=== PATIENT | female | born 1990 | race Caucasian/White ===

== ENCOUNTER 2017-04-12 13:31 | Emergency (ER) | payer OTHER, SELFPAY ==
[2017-04-12 13:50] VITALS: O2SAT 100
[2017-04-12] MEDS ORDERED: SUBLIMAZE 100 MCG/2 ML IV ONE (14:15)
[2017-04-12] MEDS ORDERED: Sodium Chloride 0.9% 1000 ML 1,000 ML IV STA (14:15)
[2017-04-12] MEDS ORDERED: Zofran 4 MG/2 ML VIAL IV ONE (14:15)
[2017-04-12 14:35] LABS: BASOPHIL % 0.3 % (0.0-0.4); Eosinophil % 1.9 % (0.00-5.0); Lymphocytes % 32.7 % (24.0-44.0); Mean Cell Volume 90.3 fl (78-100); Mean Corpuscular Hemoglobin 29.2 pg (26-32); Mean Platelet Volume 11.6 fl (6-9.5); Monocytes % 8.1 % (0.0-12.0); Platelet Count 305 K/mm3 (150-450); Red Blood Count 4.72 M/mm3 (4.1-5.4); Red Cell Distribution Width 12.4 % (11.5-14.0)
[2017-04-12 14:51] LABS: ANION GAP 11.6 MEQ/L (5-15); BLOOD UREA NITROGEN 12 mg/dL (9-20); CHLORIDE 105 mEq/L (98-107); Carbon Dioxide 27.4 mEq/L (21-32); Glucose 97 MG/DL (70-110); Potassium 4.2 mEq/L (3.5-5.1); SODIUM 140 mEq/L (136-145)
[2017-04-12] MEDS ORDERED: Zofran 4 MG/2 ML VIAL ONE (14:55)
[2017-04-12] MEDS ORDERED: Sodium Chloride 0.9% 1000 ML 1,000 ML ONE (14:55)
[2017-04-12] MEDS ORDERED: SUBLIMAZE 100 MCG/2 ML ONE (14:55)
--- NOTE | 2017-04-12 15:07 | ERPHSYRPT ---
- History of Present Illness Time Seen by Provider: 04/12/17 14:00 Historian: patient Patient Subjective Stated Complaint: pt states she has had abdominal pain on the left side that has been constant for the past 1 1/2 weeks. pt states she did notice blood in stool this morning. states she only has a bowel movement once or twice a month. Triage Nursing Assessment: pt pink, warm, dry. abdomen soft non tender. bowel sounds present in all 4 quads. pt afebrile. Physician History: PATIENT WITH A HISTORY OF MIGRAINE HEADACHES FOR YEARS AND COLONIC POLYPS, STATES SHE HAS HAD LEFT LOWER ABDOMINAL PAIN SINCE HER COLONOSCOPY 2011 AT WHICH TIME SHE HAD REMOVAL OF COLON POLYPS. HAS HAD AN OCCIPITAL HEADACHE FOR 3 WEEKS. DENIES NAUSEA, EMESIS, BLURRED VISION, URINARY SYMPTOMS OR DIARRHEA. Timing/Duration: week(s) Activities at Onset: none Quality: cramping Abdominal Pain Onset Location: LLQ Pain Radiation: no radiation Severity of Pain-Max: moderate Severity of Pain-Current: moderate Modifying Factors: Improves With: nothing Associated Symptoms: denies symptoms Previous symptoms: same symptoms as today Allergies/Adverse Reactions: ibuprofen Allergy (Mild, Verified 04/12/17 13:50) Hives n/v morphine Allergy (Verified 04/12/17 13:50) Hives Hx Tetanus, Diphtheria Vaccination/Date Given: Yes (up[ to date) Hx Influenza Vaccination/Date Given: No Hx Pneumococcal Vaccination/Date Given: No Immunizations Up to Date: Yes - Review of Systems Constitutional: No Fever, No Chills Eyes: No Symptoms Ears, Nose, & Throat: No Symptoms Respiratory: No Symptoms, No Cough, No Dyspnea Cardiac: No Symptoms, No Chest Pain, No Edema, No Syncope Abdominal/Gastrointestinal: No Abdominal Pain, No Nausea, No Vomiting, No Diarrhea Genitourinary Symptoms: No Symptoms, No Dysuria Musculoskeletal: No Symptoms, No Back Pain, No Neck Pain Skin: No Rash Neurological: No Dizziness, No Focal Weakness, No Sensory Changes Psychological: No Symptoms Endocrine: No Symptoms All Other Systems: Reviewed and Negative - Past Medical History Pertinent Past Medical History: Yes Neurological History: Migraines ENT History: No Pertinent History Cardiac History: No Pertinent History Respiratory History: No Pertinent History, Asthma Endocrine Medical History: No Pertinent History Musculoskeletal History: Other GI Medical History: Polyps History: No Pertinent History Psycho-Social History: Attention Deficit Disorder, Bipolar, Depression Female Reproductive Disorders: Other Other Medical History: CHRONIC BACK PAIN, ECTOPIC - Past Surgical History Past Surgical History: Yes Neuro Surgical History: No Pertinent History Cardiac: No Pertinent History Respiratory: No Pertinent History Gastrointestinal: No Pertinent History Genitourinary: No Pertinent History Musculoskeletal: No Pertinent History Female Surgical History: Section, Tubal Ligation, Other Other Surgical History: x two, D&C, - Social History Smoking Status: Never smoker Exposure to second hand smoke: No Alcohol Use: None Drug Use: none Patient Lives Alone: No Significant Family History: other (Hx lung cancer in family) - Female History Hx Last Menstrual Period: 03/23/17 Hx Now: No - Nursing Vital Signs Nursing Vital Signs: Initial Vital Signs Temperature 98.9 F 04/12/17 13:45 Pulse Rate 93 H 04/12/17 13:45 Respiratory Rate 18 04/12/17 13:45 Blood Pressure 127/67 04/12/17 13:45 O2 Sat by Pulse Oximetry 100 04/12/17 13:45 Pain Scale Pain Intensity 9 - Physical Exam General Appearance: no apparent distress, alert Eye Exam: PERRL/EOMI, eyes nml inspection Ears, Nose, Throat Exam: normal ENT inspection, pharynx normal, moist mucous membranes Neck Exam: normal inspection, non-tender, supple, full range of motion Respiratory Exam: normal breath sounds, lungs clear, No respiratory distress Cardiovascular Exam: regular rate/rhythm, normal heart sounds Gastrointestinal/Abdomen Exam: soft, normal bowel sounds, tenderness (LEFT LOWER LATERAL QUAD TENDERNESS), No mass Rectal Exam: normal exam, normal rectal tone Back Exam: normal inspection, normal range of motion, No CVA tenderness, No vertebral tenderness Extremity Exam: normal inspection, normal range of motion, pelvis stable Neurologic Exam: alert, oriented x 3, cooperative, normal mood/affect, nml cerebellar function, sensation nml, No motor deficits Skin Exam: normal color, warm, dry SpO2 Interpretation: normal SpO2: 100 Oxygen Delivery: Room Air Ordered Tests: Active Orders 24 hr Category Date Time Status IV Insertion STAT Care 04/12/17 14:15 Active BMP Stat Lab 04/12/17 14:34 Completed CBC W DIFF Stat Lab 04/12/17 14:34 Completed HCG,QUALITATIVE URINE Stat Lab 04/12/17 14:15 Completed Occult Blood,Stool Other Stat Lab 04/12/17 14:20 Completed UA W/RFX UR CULTURE Stat Lab 04/12/17 14:34 Completed Urine Triage Profile Stat Lab 04/12/17 14:34 Completed Medication Summary Discontinued Medications Generic Name Dose Route Start Last Admin Trade Name Katerine PRN Reason Stop Dose Admin Fentanyl Citrate 100 mcg 04/12/17 14:15 04/12/17 15:00 Sublimaze 100 Mcg/2 Ml IV 04/12/17 14:16 100 mcg STAT ONE Administration Fentanyl Citrate Confirm 04/12/17 14:55 Sublimaze 100 Mcg/2 Ml Administered 04/12/17 14:56 Dose 100 mcg .ROUTE .STK-MED ONE Sodium Chloride 1,000 mls @ 999 mls/hr 04/12/17 14:15 04/12/17 15:00 Sodium Chloride 0.9% 1000 Ml IV 04/12/17 15:15 999 mls/hr .Q1H1M STA Administration Sodium Chloride Confirm 04/12/17 14:55 Sodium Chloride 0.9% 1000 Ml Administered 04/12/17 14:56 Dose 1,000 mls @ ud .ROUTE .STK-MED ONE Ondansetron HCl 4 mg 04/12/17 14:15 04/12/17 15:00 Zofran 4 Mg/2 Ml Vial IV 04/12/17 14:16 4 mg STAT ONE Administration Ondansetron HCl Confirm 04/12/17 14:55 Zofran 4 Mg/2 Ml Vial Administered 04/12/17 14:56 Dose 4 mg .ROUTE .STK-MED ONE Lab/Rad Data: Laboratory Result Diagrams 04/12/17 14:34 04/12/17 14:34 Laboratory Results 04/12/17 04/12/17 04/12/17 Range/Units 14:34 14:34 14:34 WBC (4.0-10.5) K/mm3 RBC (4.1-5.4) M/mm3 Hgb (12.0-16.0) gm/dl Hct (35-47) % MCV (78-100) fl MCH (26-32) pg MCHC (32-36) g/dl RDW (11.5-14.0) % Plt Count (150-450) K/mm3 MPV (6-9.5) fl Gran % (36.0-66.0) % Lymphocytes % (24.0-44.0) % Monocytes % (0.0-12.0) % Eosinophils % (0.00-5.0) % Basophils % (0.0-0.4) % Basophils # (0-0.4) Sodium 140 (136-145) mEq/L Potassium 4.2 (3.5-5.1) mEq/L Chloride 105 (98-107) mEq/L Carbon Dioxide 27.4 (21-32) mEq/L Anion Gap 11.6 (5-15) MEQ/L BUN 12 (9-20) mg/dL Creatinine 0.92 (0.55-1.30) mg/dl Estimated GFR > 60 ML/MIN Glucose 97 (70-110) MG/DL Calcium 8.9 (8.5-10.1) mg/dL Ur Collection Type CLEAN CATCH Urine Color YELLOW (YELLOW) Urine Appearance CLEAR (CLEAR) Urine pH 8.0 (5-6) Ur Specific [place] 1.005 (1.005-1.025) Urine Protein NEGATIVE (Negative) Urine Ketones NEGATIVE (NEGATIVE) Urine Blood NEGATIVE (0-5) Ranjan/ul Urine Nitrite NEGATIVE (NEGATIVE) Urine Bilirubin NEGATIVE (NEGATIVE) Urine Urobilinogen NORMAL (0-1) mg/dL Ur Leukocyte Esterase NEGATIVE (NEGATIVE) Urine Culture Reflexed NO (NO) Urine Glucose NEGATIVE (NEGATIVE) mg/dL Urine HCG, Qual (Negative) Stool Occult Blood (Negative) Urine Opiates Level NEG. (NEGATIVE) Ur Methadone NEG. (NEGATIVE) Urine Barbiturates NEG. (NEGATIVE) Ur Phencyclidine (PCP) NEG. (NEGATIVE) Urine Amphetamine NEG. (NEGATIVE) U Benzodiazepine Level NEG. (NEGATIVE) Urine Cocaine NEG. (NEGATIVE) Urine Marijuana (THC) POS. (NEGATIVE) Specimen Received 04-12 1430 04/12/17 04/12/17 04/12/17 Range/Units 14:34 14:20 14:15 WBC 8.0 (4.0-10.5) K/mm3 RBC 4.72 (4.1-5.4) M/mm3 Hgb 13.8 (12.0-16.0) gm/dl Hct 42.6 (35-47) % MCV 90.3 (78-100) fl MCH 29.2 (26-32) pg MCHC 32.4 (32-36) g/dl RDW 12.4 (11.5-14.0) % Plt Count 305 (150-450) K/mm3 MPV 11.6 H (6-9.5) fl Gran % 57.0 (36.0-66.0) % Lymphocytes % 32.7 (24.0-44.0) % Monocytes % 8.1 (0.0-12.0) % Eosinophils % 1.9 (0.00-5.0) % Basophils % 0.3 (0.0-0.4) % Basophils # 0.02 (0-0.4) Sodium (136-145) mEq/L Potassium (3.5-5.1) mEq/L Chloride (98-107) mEq/L Carbon Dioxide (21-32) mEq/L Anion Gap (5-15) MEQ/L BUN (9-20) mg/dL Creatinine (0.55-1.30) mg/dl Estimated GFR ML/MIN Glucose (70-110) MG/DL Calcium (8.5-10.1) mg/dL Ur Collection Type Urine Color (YELLOW) Urine Appearance (CLEAR) Urine pH (5-6) Ur Specific [place] (1.005-1.025) Urine Protein (Negative) Urine Ketones (NEGATIVE) Urine Blood (0-5) Ranjan/ul Urine Nitrite (NEGATIVE) Urine Bilirubin (NEGATIVE) Urine Urobilinogen (0-1) mg/dL Ur Leukocyte Esterase (NEGATIVE) Urine Culture Reflexed (NO) Urine Glucose (NEGATIVE) mg/dL Urine HCG, Qual NEGATIVE (Negative) Stool Occult Blood NEGATIVE (Negative) Urine Opiates Level (NEGATIVE) Ur Methadone (NEGATIVE) Urine Barbiturates (NEGATIVE) Ur Phencyclidine (PCP) (NEGATIVE) Urine Amphetamine (NEGATIVE) U Benzodiazepine Level (NEGATIVE) Urine Cocaine (NEGATIVE) Urine Marijuana (THC) (NEGATIVE) Specimen Received - Progress Progress: improved, pain not gone completely Progress Note: 04/12/17 15:08 ADMINISTERED IV NORMAL SALINE 500ML/HR ZOFRAN 4MG, FENTANYL 0.1 MG IV Counseled pt/family regarding: lab results, diagnosis, need for follow-up - Departure Time of Disposition: 15:33 Departure Disposition: Home Clinical Impression: CHRONIC ABDOMINAL PAIN, MIGRAINE CEPHALGIA Condition: Stable Critical Care Time: No Referrals: MELANI CAMARA [Primary Care Provider] - Additional Instructions: FOLLOWUP WITH YOUR PRIMARY CARE PROVIDER FOR REFERRAL TO DR ASHKAN TORREZ FOR EVALUATION FOR COLONOSCOPY. ULTRAM 50MG EVERY 4-6 HOURS NEEDED FOR PAIN. Prescriptions: Tramadol HCl 50 mg [Ultram 50 mg] 50 mg PO Q4-6HPRN PRN #15 tablet PRN Reason: Pain
[2017-04-12 15:13] LABS: ADD URINE CULTURE? NO (NO); Bilirubin NEGATIVE (NEGATIVE); Blood NEGATIVE Ery/ul (0-5); COMPLETE URINE MICROSCOPIC? NO; Collection Type CLEAN CATCH; Glucose NEGATIVE (NEGATIVE); Leukocyte Esterase NEGATIVE (NEGATIVE)
[2017-04-12 15:42] VITALS: BP 110/67; PULSE 78
== END 2017-04-12 15:47 | disposition home or self-care (01) ==
LOC: ED 13:31
DX: R10.32 Left lower quadrant pain (principal); G89.29 Other chronic pain; G43.909 Migraine, unspecified, not intractable, without status migrainosus
CPT/HCPCS: 36415; 80048; 80307; 81002; 82272; 84703; 85025; 96360; 96374; 96375; 99284; J2405; J3010

== ENCOUNTER 2017-05-08 06:04 | Day surgery (SDC) | payer OTHER ==
[~2017-05-08 06:04] MED LIST: Lactated Ringers 1,000 ML IV SCH
[2017-05-08] MEDS ORDERED: SUBLIMAZE 100 MCG/2 ML IV ONE (06:05)
[2017-05-08] MEDS ORDERED: Versed 2 MG/2 ML Injection IV ONE (06:05)
[2017-05-08] MEDS ORDERED: Xylocaine-Mpf 2% 5 Ml Vial IJ ONE (06:05)
[2017-05-08] MEDS ORDERED: DIPRIVAN 200 MG/20 ML IV ONE (06:05)
[2017-05-08] MEDS ORDERED: Lactated Ringers 1,000 ML IV ONE ×2 (06:08→10:13)
[2017-05-08 06:44] VITALS: O2SAT 100
[2017-05-08 09:06] VITALS: BP 117/74; PULSE 77
--- NOTE | 2017-05-08 12:54 | OP ---
SURGERY DATE/TIME: 05/08/2017 0753 PREOPERATIVE DIAGNOSIS: Rectal bleeding. POSTOPERATIVE DIAGNOSIS: Normal colon. PROCEDURE: Colonoscopy. SURGEON: Dr. Otero. ANESTHESIA: MAC. Medications given by anesthesia department. HISTORY: The patient is a 26 year-old white female who reports rectal bleeding. She reports that she has had several episodes that are followed by hard bowel movement with straining. The patient reports a family history of colon polyps and possibly colon cancer. The patient was felt the need to have endoscopic evaluation./ She was appraised of the risks of the procedure including the risk of perforation, phlebitis, untoward reaction to medication, bleeding and missed lesions. The patient verbalized her understanding and desired to have the procedure performed. DESCRIPTION OF PROCEDURE: The patient was given the medications by the anesthesia department. She had continuous pulse oximetry, ECG monitoring, intermittent blood pressure monitoring and tidal CO2 monitoring during the examination. She was placed in the left lateral decubitus position. A digital rectal examination was performed and revealed normal anal sphincter tone and no masses. The flexible Olympus pediatric colonoscope was used to intubate the rectum. A view of the colon was developed sequentially to the cecum. Upon insertion and withdrawal, including a retroflex view in the rectum, no mucosal lesions were encountered. The scope was removed from the patient who tolerated the procedure well and was sent back to OP recovery in good condition. The prep was noted to be fair to poor.
== END 2017-05-08 09:32 | disposition home or self-care (01) ==
LOC: SDC 06:04
PROVIDERS: ATTEND Family Medicine
PROC: 0DJD8ZZ Inspection of Lower Intestinal Tract, Via Natural or Artificial Opening Endoscopic (ICD-10-PCS; principal; 2017-05-08)
DX: K62.5 Hemorrhage of anus and rectum (principal)
CPT/HCPCS: 00812; J2250; J2704; J3010